=== PATIENT | male | born 1990 | race Caucasian/White ===

== ENCOUNTER 2019-02-06 08:18 | Emergency (ER) | payer OTHER ==
[~2019-02-06] VITALS: Ht 172.7 cm; Wt 76.7 kg
[2019-02-06 08:28] VITALS: BP 125/83
[2019-02-06] MEDS ORDERED: KETOROLAC TROMETH 30 MG/ML 1ML VIAL IM ONE (09:45)
[2019-02-06] MEDS ORDERED: ACETAMINOPHEN 325 MG TAB PO ONE (10:00)
== END 2019-02-06 10:44 | disposition home or self-care (01) ==
LOC: ER 08:32 → EDUNIT# 08:32 → ER 10:43
DX: S82.242A Displaced spiral fracture of shaft of left tibia, initial encounter for closed fracture (principal); J45.909 Unspecified asthma, uncomplicated; X50.1XXA Overexertion from prolonged static or awkward postures, initial encounter; Y93.39 Activity, other involving climbing, rappelling and jumping off; Y99.8 Other external cause status; Y92.89 Other specified places as the place of occurrence of the external cause
CPT/HCPCS: 29515; 73590